=== PATIENT | male | born 1935 | race Caucasian/White ===

== ENCOUNTER → 2016-12-27 | Outpatient (CLI) | payer MEDICARE ==
[2016-09-26 12:04] VITALS: BP 127/78
[~2016-12-27] MED LIST: BARIUM SULFATE 40% (APPLE) 148 GM PWD. PO ONE; CITA10TA4 PO; DEXT1TAB PO; DOCU100C28 PO; DRON2.5C2 PO; ENOX40DI3 SQ; FAT250EM9 IV; FERR300L PO; FURO40TA4 PO; HYDR-2758 PO; INSU100C SQ; LMFO1TAB PO; MELA3TAB2 PO; MIDO5TAB PO; MIRT15TA3 PO; MULT-638 PO; MVI IV; ONDA2VIA2 IV; OXYC-323 PO; SPIR25TA3 PO; VIT1TABL56 PO; [UNRECOGNIZED DRUG - CODE] IV; [UNRECOGNIZED DRUG - CODE] IV; [UNRECOGNIZED DRUG - CODE] IV
--- NOTE | 2016-12-27 14:07 | RAD ---
Indication signs and symptoms of aspiration. With a member of the Department of speech pathology swallowing was evaluated. No spot fluoroscopic images were obtained. Fluoroscopy time associated with the examination was 5 minutes 30 seconds. Honey thick consistency material was administered initially. There was considerable residual in the vallecula and piriform sinuses. This material eventually rolled below the epiglottis and along the anterior commissure. With the additional administration of nectar thick consistency material some of this material was aspirated silently. No aspiration was seen with puree material 4 with thin liquid material. See speech pathology notes for additional details. IMPRESSION: Silent aspiration of a small amount of material as outlined above
== END | disposition home or self-care (01) ==
LOC: RAD 08:00
PROVIDERS: ATTEND Internal Medicine
DX: R13.12 Dysphagia, oropharyngeal phase (principal)
CPT/HCPCS: 74230; 92611; G8996; G8997; G8998